=== PATIENT | female | born 1970 | race Caucasian/White ===

== ENCOUNTER → 2019-12-05 | Outpatient (CLI) | payer SELFPAY ==
--- NOTE | 2019-12-05 11:00 | RADIOLOGY REPORT (SQ) ---
EXAM DESCRIPTION: CHEST 2 VIEWS IMAGES COMPLETED DATE/TIME: 12/05/2019 10:49 am REASON FOR STUDY: R05 COUGH COMPARISON: None. EXAM PARAMETERS: NUMBER OF VIEWS: two views TECHNIQUE: Digital Frontal and Lateral radiographic views of the chest acquired. RADIATION DOSE: NA LIMITATIONS: none FINDINGS: LUNGS AND PLEURA: Patchy bilateral peripheral alveolar infiltrates. Findings are suspicio us for viral pneumonia or atypical bacterial pneumonia. There is a small left pleural effusion. MEDIASTINUM AND HILAR STRUCTURES: No masses or contour abnormalities. HEART AND VASCULAR STRUCTURES: Heart normal size. No evidence for failure. BONES: No acute findings. HARDWARE: None in the chest. OTHER: No other significant finding. IMPRESSION: Patchy bilateral peripheral airspace disease. There is a small left effusion. Findings are consistent with multifocal pneumonia. This could represent viral pneumonia or atypical bacteria l pneumonia. TECHNICAL DOCUMENTATION: JOB ID: [id number] [employer]- All Rights Reserved Reading location - IP/workstation name: [email or web address]
== END ==
LOC: RAD 10:21
PROVIDERS: ATTEND Nurse Practitioner Family
DX: R05 Cough (principal)
CPT/HCPCS: 71046